=== PATIENT | female | born 1955 | race Caucasian/White ===

== ENCOUNTER 2018-07-26 09:32 | Day surgery (SDC) | payer BC ==
[~2018-07-26 09:32] MED LIST: SEVOFLURANE 15 MIN
[2018-07-26] MEDS: STRONG IODINE 14 ML SOLUTION TOP (14:17)
[2018-07-26] MEDS ORDERED: LIDOCAINE 2% (SDV) 5 ML INJ (14:19)
[2018-07-26] MEDS ORDERED: PROPOFOL 20 ML (14:19)
[2018-07-26] MEDS ORDERED: MEPERIDINE 100 MG INJ (14:19)
[2018-07-26] MEDS ORDERED: CEFAZOLIN 1 GM INJ (14:45)
[2018-07-26] MEDS ORDERED: NALOXONE (0.4 MG/ML) INJ (15:11)
[2018-07-26] MEDS ORDERED: OXYCODONE/ACETAMINOPHEN (5/325) TAB PO ×2 (15:30)
[2018-07-26] MEDS ORDERED: ONDANSETRON 4 MG INJ IV (15:30)
[2018-07-26] MEDS ORDERED: LABETALOL HCL 20MG INJ IV (15:30)
[2018-07-26] MEDS ORDERED: EPHEDrine SULFATE 50 MG/5 ML SYG IV (15:30)
[2018-07-26] MEDS ORDERED: hydrALAzine 20 MG INJ IV (15:30)
[2018-07-26] MEDS ORDERED: ACETAMINOPHEN 325 MG TAB PO (15:30)
[2018-07-26] MEDS ORDERED: FENTAnyl 50 MCG/ML VIAL IV ×2 (15:30)
[2018-07-26] MEDS ORDERED: METOCLOPRAMIDE 10 MG INJ IV (15:30)
[2018-07-26] MEDS ORDERED: MIDAZOLAM 1 MG/ML 2 ML INJ IV (15:30)
[2018-07-26] MEDS ORDERED: DIPHENHYDRAMINE 50 MG INJ IV (15:30)
[2018-07-26] MEDS ORDERED: MEPERIDINE 25 MG INJ IV (15:30)
[2018-07-26] MEDS: FENTAnyl 50 MCG/ML VIAL IV ×2 (15:37→16:14)
== END 2018-07-26 17:15 | disposition home or self-care (01) ==
LOC: SDS 09:32
DX: D06.0 Carcinoma in situ of endocervix (principal)
CPT/HCPCS: 57522; 71045; 84702; 86850; 86900; 86901; 88305; 93005

== ENCOUNTER 2018-11-28 07:24 | Day surgery (SDC) | payer BC ==
[2018-11-28] MEDS ORDERED: PROPOFOL 40 ML (08:58)
[2018-11-28] MEDS ORDERED: LIDOCAINE 2% (SDV) 5 ML INJ (08:59)
[2018-11-28] MEDS ORDERED: morphine (1 MG/ML) 10ML SYRINGE IV (10:00)
[2018-11-28] MEDS ORDERED: ONDANSETRON 4 MG INJ IV (10:00)
== END 2018-11-28 10:57 | disposition home or self-care (01) ==
LOC: GIL 07:24
DX: Z12.11 Encounter for screening for malignant neoplasm of colon (principal); K64.4 Residual hemorrhoidal skin tags; K22.10 Ulcer of esophagus without bleeding; K20.8 Other esophagitis
CPT/HCPCS: 43239; 88305; 88312